=== PATIENT | female | born 2000 | race Hispanic/Latino ===

== ENCOUNTER 2024-07-18 17:42 | Emergency (ER) | payer MEDICAID, OTHER ==
[~2024-07-18] VITALS: Ht 157.5 cm; Wt 89.8 kg
[2024-07-18] MEDS: acetaMINOPHEN 500 MG TABLET PO ONE (18:57)
--- NOTE | 2024-07-18 19:04 | HMCIMG ---
Exam Type: RIBS UNI LT W PA CHEST 3+VWS Clinical Information: left rib pain Comparison: None Findings: Routine views reveal no evidence of fracture, dislocation, destructive process, or other rib abnormalities. No soft tissue abnormality is noted either. There is no evidence of pneumothorax. IMPRESSION: NORMAL RIB SERIES.
--- NOTE | 2024-07-18 19:25 | ERN ---
General Chief Complaint: Rib Pain Stated Complaint: LEFT RIB PAIN Time Seen by MD: 17:45 Time Seen by Midlevel: 17:45 Source: patient History of Present Illness Initial Comments 23-year-old female presents to the emergency department due to left-sided rib pain with deep breathing. Patient denies any injury, trauma, cough, fever or further associated symptoms. Patient states the pain is just to the left side otherwise denies any chest pain. Denies any significant past medical history. Allergies: Coded Allergies: No Known Drug Allergies (Unverified Allergy, Unknown, 07/18/24) Past Medical History Past Medical History: No Pertinent History Past Surgical History: None Female( History) LMP: July 07, 2024 ROS Dictation Constitutional: Negative for fever,chills, and weight loss Eyes: Negative for injury, pain,redness, and discharge ENT: Negative for injury,pain or swelling Cardiovascular: Positive for left sided rib pain Negative for chest pain, palpitations, and edema Respiratory: Negative for shortness of breath, cough, and wheezing, Abdomen/GI: Negative for abdominal pain, nausea, vomiting, diarrhea, and constipation Back: Negative for injury and pain : Negative for painful urination, bleeding or discharge MS/Extremity: Negative for injury and deformity Skin: Negative for rash, and discoloration Neuro: Negative for headache, weakness, numbness, tingling, and seizure Psych: Negative for suicide ideation, homicidal ideation, and hallucinations Physical Exam Physical Exam Dictation General: awake, alert, no acute distress Head/Face: Normocephalic, atraumatic Eyes: PERRL, EOMI, normal conjunctiva ENT: oral cavity clear, oral mucosa moist Neck: Supple, normal range of motion Cardiovascular: RRR, normal S1/S2 Respiratory: CTAB, no respiratory distress, no rales or wheezes Chest: No tenderness to palpation of the ribs Abdomen: Soft, non-tender, non-distended Skin: Warm, dry, normal turgor, no rash MS/Extremity: Pulses equal, no cyanosis, neurovascular intact, FROM Neuro: COAx4, GCS 15, strength 5/5, CN 2-12 intact, normal cerebellar exam, normal gait Psych: Normal behavior, mood, and affect normal Results EKG/XRAY/US/CT/MRI X-RAY Comment REASON: left rib pain ORDERING PHYSICIAN: TANJA ROBLERO PROCEDURE: RIB LT W C - RIBS UNI LT W PA CHEST 3+VWS Exam Type: RIBS UNI LT W PA CHEST 3+VWS Clinical Information: left rib pain Comparison: None Findings: Routine views reveal no evidence of fracture, dislocation, destructive process, or other rib abnormalities. No soft tissue abnormality is noted either. There is no evidence of pneumothorax. IMPRESSION: NORMAL RIB SERIES. DICTATED BY: LITZY MCARTHUR MD DATE: 07/18/241901 [facility] MDM: Differential diagnosis: Rib fracture, pneumonia, rib contusion Rationale: 23-year-old female presents to the emergency department due to left- sided rib pain with deep breathing. Patient denies any injury, trauma, cough, fever or further associated symptoms. Patient states the pain is just to the left side otherwise denies any chest pain. Denies any significant past medical history. Per physical examination patient is in no acute distress, no tenderness to palpation of the ribs/chest. Per PERC rule P may be ruled out. Chest and rib series x-rays obtained with no indications of acute abnormalities. Acetaminophen administered in the ED. Patient was educated on findings and diagnosis. Advised to follow up with PCP. Return to the emergency department for any worsening symptoms. Patient verbalized understanding. Patient stable for discharge. There are no social concerns with this patient. I independently interpreted the test that were performed, results were reviewed by me and considered findings on radiology if ordered. Medical management and examination interpretation discussions were had by me with other qualified healthcare professionals as indicated for the patient's care. ED Course Orders Procedure Category Date Status Time Ribs Uni Lt W Pa RAD 07/18/24 Resulted Chest 3+Vws 18:09 Acetaminophen 500mg PHA 07/18/24 Complete Tab (Tylenol 500mg T 19:00 Current Medications Medications (Trade) Dose Ordered Sig/Jessica Route PRN Reason Start Time Stop Time Status Last Admin Dose Admin Acetaminophen (TYLenol 500MG TAB) 1,000 mg ONCE ONCE PO 07/18/24 19:00 07/18/24 19:01 DC 07/18/24 18:57 Vital Signs Date Time Temp Pulse Resp B/P (MAP) Pulse Ox O2 Delivery O2 Flow Rate FiO2 07/18/24 19:53 98.4 80 16 145/89 97 Room Air* 0 21 07/18/24 17:46 98.4 81 16 152/100 97 Room Air 0 DX & DISP Disposition: Discharge Departure Impression: Primary Impression: Rib pain Condition: Stable Additional Instructions: Discharge home. Rest. Follow up with primary care DrBob in 24 hours. Return to the ER for any acute changes or worsening symptoms. If any medications were prescribed take as directed. Okay to continue home medications unless otherwise discussed during your visit in the emergency room today. Patient was also advised to follow-up with primary care physician in 1 to 2 days for continued monitoring. Referrals: SELF,REFERRAL (PCP) I performed the substantive portion of the visit. I have reviewed and personally made and approve the management plan that is documented in the notes by myself or the KAMILA. I acknowledge full responsibility for the patient's management plan. TANJA ROBLERO Jul 18, 2024 19:25
[2024-07-18 19:53] VITALS: BP 145/89; PULSE 80; RESP 16; TEMP 98.4; O2SAT 97
== END 2024-07-18 20:03 | disposition home or self-care (01) ==
LOC: EDH 17:42
DX: R07.81 Pleurodynia (principal)
CPT/HCPCS: 71101; 99283